=== PATIENT | male | born 1970 | race African-American/Black ===

== ENCOUNTER 2016-10-01 21:31 | Emergency (ER) | payer OTHER ==
[~2016-10-01] VITALS: Ht 190.5 cm; Wt 98.4 kg
[2016-10-01 22:56] VITALS: BP 152/90
[2016-10-01] MEDS ORDERED: HYDROCODONE/APAP 5/325MG 1 EACH TABLET PO ONE (23:00)
[2016-10-01] MEDS ORDERED: CARISOPRODOL 350 MG TABLET PO ONE (23:00)
[2016-10-01] MEDS ORDERED: CARISOPRODOL 350 MG TABLET ONE (23:01)
[2016-10-01] MEDS ORDERED: HYDROCODONE/APAP 5/325MG 1 EACH TABLET ONE (23:01)
== END 2016-10-01 23:19 | disposition home or self-care (01) ==
LOC: ER 21:32
DX: S40.812A Abrasion of left upper arm, initial encounter (principal); S50.812A Abrasion of left forearm, initial encounter; M62.838 Other muscle spasm; V49.49XA Driver injured in collision with other motor vehicles in traffic accident, initial encounter; Y93.89 Activity, other specified; Y92.89 Other specified places as the place of occurrence of the external cause; Y99.9 Unspecified external cause status
CPT/HCPCS: A4606; Z7610